=== PATIENT | female | born 1990 | race African-American/Black ===

== ENCOUNTER 2016-10-30 10:14 | Emergency (ER) | payer OTHER ==
[~2016-10-30] VITALS: Ht 157.5 cm; Wt 66.7 kg
[~2016-10-30 10:14] MED LIST: ACTICIN 5% CREA60 G1 TOP; BIRTH CONTROL PILL PO; DIFLUCAN150 MG PO; MACROBID 100 M100 M1 PO; NORCO 5-325 TA1 EACH PO; PENICILLIN VK500 MG PO; PERMETHRIN60 GM TOP; PREDNISONE50 MG PO; PYRIDIUM200 MG PO; UNICOMPLEX M TA1 TA1 PO; VISTARIL 25 MG25 M1 PO
[2016-10-30 10:16] VITALS: BP 122/86
[2016-10-30] MEDS ORDERED: IBUPROFEN 800800 MG PO (10:36)
== END 2016-10-30 10:46 | disposition home or self-care (01) ==
LOC: ER 10:14
DX: S86.811A Strain of other muscle(s) and tendon(s) at lower leg level, right leg, initial encounter (principal); Z88.6 Allergy status to analgesic agent; F10.99 Alcohol use, unspecified with unspecified alcohol-induced disorder; V43.52XA Car driver injured in collision with other type car in traffic accident, initial encounter; Y93.89 Activity, other specified; Y92.89 Other specified places as the place of occurrence of the external cause; Y99.8 Other external cause status

== ENCOUNTER 2017-01-11 00:41 | Emergency (ER) | payer OTHER ==
[~2017-01-11] VITALS: Ht 157.5 cm; Wt 65.8 kg
[~2017-01-11 00:41] MED LIST changes: +IBUPROFEN 800800 MG PO
[2017-01-11 02:22] LABS: URINE BILIRUBIN NEGATIVE (Negative); URINE BLOOD NEGATIVE (Negative); URINE COLOR YELLOW; URINE GLUCOSE-RANDOM* NEGATIVE (Negative); URINE KETONES NEGATIVE (Negative); URINE LEUKOCYTES-REFLEX TRACE (Negative); URINE PROTEIN (DIPSTICK) NEGATIVE (Negative); URINE SPECIFIC GRAVITY 1.025 (1.003-1.035); URINE UROBILINOGEN 0.2 E.U./dl (0.2-1.0)
[2017-01-11 02:45] VITALS: BP 118/68
[2017-01-12 15:06] LABS: CHLAMYDIA TRACHOMATIS-PCR Negative (Negative); NEISSERIA GONORRHEA-PCR Negative (Negative)
[2017-01-13 09:28] LABS: HSV PCR SOURCE LABIA
== END 2017-01-11 02:46 | disposition home or self-care (01) ==
LOC: ER 00:41
PROVIDERS: Emergency Medicine
DX: N76.0 Acute vaginitis (principal); Z88.6 Allergy status to analgesic agent; Z88.1 Allergy status to other antibiotic agents

== ENCOUNTER 2018-01-16 10:29 | Emergency (ER) | payer OTHER ==
[~2018-01-16] VITALS: Ht 157.5 cm; Wt 69.4 kg
[2018-01-16 11:09] LABS: ABSOLUTE NEUTROPHILS 8.2 thou/uL (1.4-8.2); BASOPHILS 0.1 % (0.0-2.0); EOSINOPHILS 1.3 % (0.0-3.0); HEMATOCRIT 35.7 % (37.0-47.0); HEMOGLOBIN 12.3 gm/dL (12.0-15.0); LYMPHOCYTES 7.8 % (24.0-44.0); MCH 27.6 pg (26.0-34.0); MCHC 34.6 g/dL (28.0-37.0); MCV 79.9 fL (80.0-100.0); MONOCYTES 5.7 % (1.0-8.0); PLATELET COUNT 152 thou/uL (150-400); POLYS 85.1 % (36.0-66.0); RBC 4.47 mil/uL (4.20-5.00); RDW 16.4 % (10.5-14.5); WBC 9.7 thou/uL (4.0-11.0)
[2018-01-16 11:35] LABS: CALCIUM 8.6 mg/dL (8.5-10.1); CREATININE 0.8 mg/dL (0.6-1.0); POTASSIUM 3.4 mmol/L (3.5-5.1)
[2018-01-16 12:08] LABS: URINE BILIRUBIN NEGATIVE (Negative); URINE BLOOD 3+ (Negative); URINE CLARITY CLEAR; URINE GLUCOSE-RANDOM* NEGATIVE (Negative); URINE KETONES NEGATIVE (Negative); URINE LEUKOCYTES-REFLEX NEGATIVE (Negative); URINE NITRITE-REFLEX NEGATIVE (Negative); URINE PROTEIN (DIPSTICK) NEGATIVE (Negative); URINE SPECIFIC GRAVITY <= 1.005 (1.005-1.035); URINE UROBILINOGEN 0.2 E.U./dl (0.2-1.0)
[2018-01-16 12:11] LABS: URINE COLOR PALE PINK
[2018-01-16 12:28] LABS: CASTS None Seen /LPF (None Seen); CRYSTALS None Seen /LPF (None Seen); SQUAMOUS 4-10 Moderate /LPF (0-3)
[2018-01-16 12:29] LABS: AMORPHOUS URATES Moderate /LPF (None Seen)
[2018-01-16 12:30] LABS: URINE WBC-REFLEX 0-5 Rare /HPF (0-5)
[2018-01-16 12:31] LABS: BACTERIA-REFLEX None Seen /HPF (None Seen); URINE RBC 3-10 Few /HPF (0-2)
[2018-01-16] MEDS ORDERED: IBUPROFEN 800800 M1 PO ×2 (13:26→13:28)
[2018-01-16 13:38] VITALS: BP 115/76
== END 2018-01-16 13:44 | disposition home or self-care (01) ==
LOC: ER 10:29
PROVIDERS: Emergency Medicine; Nurse Practitioner Family
DX: O03.4 Incomplete spontaneous abortion without complication (principal); Z3A.01 Less than 8 weeks gestation of pregnancy; Z88.6 Allergy status to analgesic agent

== ENCOUNTER 2019-03-23 18:42 | Emergency (ER) | payer OTHER ==
[~2019-03-23] VITALS: Ht 157.5 cm; Wt 64.9 kg
== END 2019-03-23 21:13 | disposition home or self-care (01) ==
LOC: ER 18:42
DX: S29.012A Strain of muscle and tendon of back wall of thorax, initial encounter (principal); G43.909 Migraine, unspecified, not intractable, without status migrainosus; Z88.6 Allergy status to analgesic agent; Z88.8 Allergy status to other drugs, medicaments and biological substances; V89.2XXA Person injured in unspecified motor-vehicle accident, traffic, initial encounter; Y93.I9 Activity, other involving external motion; Y92.410 Unspecified street and highway as the place of occurrence of the external cause; Y99.8 Other external cause status

== ENCOUNTER 2019-05-02 09:55 | Emergency (ER) | payer OTHER ==
[~2019-05-02] VITALS: Ht 160 cm; Wt 64.9 kg
[~2019-05-02 09:55] MED LIST changes: +CYCLOBENZAPRINE5 MG PO; +IBUPROFEN 800800 M1 PO; +MOBIC15 MG PO
[2019-05-02 11:01] LABS: URINE BILIRUBIN NEGATIVE (Negative); URINE BLOOD 1+ (Negative); URINE CLARITY CLEAR; URINE COLOR YELLOW; URINE GLUCOSE-RANDOM* NEGATIVE (Negative); URINE KETONES NEGATIVE (Negative); URINE NITRITE-REFLEX NEGATIVE (Negative); URINE PROTEIN (DIPSTICK) NEGATIVE (Negative); URINE SPECIFIC GRAVITY 1.015 (1.005-1.035); URINE UROBILINOGEN 0.2 E.U./dl (0.2-1.0)
[2019-05-02 11:02] LABS: URINE LEUKOCYTES-REFLEX 1+ (Negative)
[2019-05-02 11:11] LABS: CASTS None Seen /LPF (None Seen); MUCUS >6 Heavy strn/LPF (None Seen); SQUAMOUS >10 Many /LPF (0-3)
[2019-05-02 11:12] LABS: URINE RBC 0-2 Rare /HPF (0-2); URINE WBC-REFLEX 6-15 Few /HPF (0-5)
[2019-05-02 11:13] LABS: BACTERIA-REFLEX 1-9 Few /HPF (None Seen); CRYSTALS None Seen /LPF (None Seen)
[2019-05-02] MEDS ORDERED: KEFLEX500 M1 PO (11:22)
[2019-05-02 11:44] VITALS: BP 115/80
== END 2019-05-02 11:47 | disposition home or self-care (01) ==
LOC: ER 09:55
PROVIDERS: Nurse Practitioner Family
DX: Z20.2 Contact with and (suspected) exposure to infections with a predominantly sexual mode of transmission (principal); Z88.6 Allergy status to analgesic agent; Z88.8 Allergy status to other drugs, medicaments and biological substances

== ENCOUNTER 2020-04-10 07:00 | Emergency (ER) | payer OTHER ==
[~2020-04-10] VITALS: Ht 157.5 cm; Wt 69.0 kg
[~2020-04-10 07:00] MED LIST changes: +KEFLEX500 M1 PO
[2020-04-10 07:38] LABS: URINE BILIRUBIN NEGATIVE (Negative); URINE BLOOD 3+ (Negative); URINE CLARITY CLEAR; URINE COLOR YELLOW; URINE GLUCOSE-RANDOM* NEGATIVE (Negative); URINE KETONES NEGATIVE (Negative); URINE NITRITE-REFLEX NEGATIVE (Negative); URINE PROTEIN (DIPSTICK) TRACE (Negative); URINE SPECIFIC GRAVITY 1.025 (1.005-1.035); URINE UROBILINOGEN 0.2 E.U./dl (0.2-1.0)
[2020-04-10 07:42] LABS: URINE LEUKOCYTES-REFLEX 1+ (Negative)
[2020-04-10 07:44] LABS: ABSOLUTE NEUTROPHILS 4.1 thou/uL (1.4-8.2); BASOPHILS 0.8 % (0.0-2.0); EOSINOPHILS 2.8 % (0.0-3.0); HEMATOCRIT 38.3 % (37.0-47.0); HEMOGLOBIN 13.5 gm/dL (12.0-15.0); LYMPHOCYTES 32.5 % (24.0-44.0); MCHC 35.3 g/dL (28.0-37.0); MCV 82.3 fL (80.0-100.0); MONOCYTES 5.6 % (1.0-8.0); PLATELET COUNT 214 thou/uL (150-400); POLYS 58.3 % (36.0-66.0); RBC 4.66 mil/uL (4.20-5.00); RDW 15.1 % (10.5-14.5); WBC 7.1 thou/uL (4.0-11.0)
[2020-04-10 07:52] LABS: ANION GAP 7 mmol/L (7-16); BUN 16 mg/dL (7-18); CALCIUM 8.5 mg/dL (8.5-10.1); CHLORIDE 100 mmol/L (98-107); CO2 27 mmol/L (21-32); GLUCOSE 88 mg/dL (74-106); POTASSIUM 3.7 mmol/L (3.5-5.1); SODIUM 134 mmol/L (136-145)
[2020-04-10 07:57] LABS: ALBUMIN 3.8 g/dL (3.4-5.0); DIRECT BILIRUBIN < 0.1 mg/dL (<0.1-0.2); LIPASE 145 U/L (73-393); SGOT 170 U/L (15-37); SGPT 62 U/L (30-65); TOTAL BILIRUBIN 0.8 mg/dL (0.2-1.0); TOTAL PROTEIN 7.5 g/dL (6.4-8.2)
[2020-04-10 08:28] LABS: CASTS None Seen /LPF (None Seen); CRYSTALS None Seen /LPF (None Seen); SQUAMOUS >10 Many /LPF (0-3); URINE WBC-REFLEX 6-15 Few /HPF (0-5)
[2020-04-10 08:30] LABS: URINE RBC 3-10 Few /HPF (0-2)
[2020-04-10] MEDS ORDERED: MOBIC15 MG PO (08:37)
[2020-04-10 08:46] VITALS: BP 113/69
== END 2020-04-10 08:46 | disposition home or self-care (01) ==
LOC: ER 07:00
PROVIDERS: Emergency Medicine
DX: S39.012A Strain of muscle, fascia and tendon of lower back, initial encounter (principal); Z79.2 Long term (current) use of antibiotics; Z88.6 Allergy status to analgesic agent; Z88.8 Allergy status to other drugs, medicaments and biological substances; X50.1XXA Overexertion from prolonged static or awkward postures, initial encounter; Y93.89 Activity, other specified; Y92.89 Other specified places as the place of occurrence of the external cause; Y99.8 Other external cause status

== ENCOUNTER 2021-02-05 11:45 | Emergency (ER) | payer OTHER ==
[~2021-02-05] VITALS: Ht 157.5 cm; Wt 68.0 kg
[2021-02-05 12:17] LABS: URINE BILIRUBIN NEGATIVE (Negative); URINE BLOOD 2+ (Negative); URINE CLARITY CLEAR; URINE COLOR YELLOW; URINE GLUCOSE-RANDOM* NEGATIVE (Negative); URINE KETONES NEGATIVE (Negative); URINE NITRITE-REFLEX NEGATIVE (Negative); URINE PROTEIN (DIPSTICK) NEGATIVE (Negative); URINE UROBILINOGEN 0.2 E.U./dl (0.2-1.0)
[2021-02-05 12:19] LABS: URINE LEUKOCYTES-REFLEX 1+ (Negative)
[2021-02-05 12:31] LABS: SQUAMOUS 4-10 Moderate /LPF (0-3)
[2021-02-05 12:32] LABS: URINE RBC 3-10 Few /HPF (0-2); URINE WBC-REFLEX 0-5 Rare /HPF (0-5)
[2021-02-05 12:33] LABS: YEAST-REFLEX Present (None Seen)
[2021-02-05 12:34] LABS: CASTS None Seen /LPF (None Seen); CRYSTALS None Seen /LPF (None Seen); MUCUS 0-3 Light strn/LPF (None Seen)
[2021-02-05] MEDS ORDERED: CEFUROXIME500 MG PO (14:06)
[2021-02-05 14:37] VITALS: BP 131/80
== END 2021-02-05 14:39 | disposition home or self-care (01) ==
LOC: ER 11:45
PROVIDERS: Nurse Practitioner
DX: J18.9 Pneumonia, unspecified organism (principal); Z20.822 Contact with and (suspected) exposure to COVID-19; N39.0 Urinary tract infection, site not specified; Z88.6 Allergy status to analgesic agent; Z79.899 Other long term (current) drug therapy

== ENCOUNTER 2021-11-10 18:19 | Emergency (ER) | payer OTHER ==
[~2021-11-10] VITALS: Ht 157.5 cm; Wt 72.6 kg
[~2021-11-10 18:19] MED LIST changes: +CEFUROXIME500 MG PO
[2021-11-10 20:17] LABS: CALCIUM 9.4 mg/dL (8.5-10.1); CREATININE 0.9 mg/dL (0.6-1.0)
[2021-11-10 20:24] LABS: BASOPHILS 0.7 % (0.0-2.0); LYMPHOCYTES 40.2 % (24.0-44.0); MCHC 35.3 g/dL (28.0-37.0); MCV 80.6 fL (80.0-100.0)
[2021-11-10 20:25] LABS: ABSOLUTE NEUTROPHILS 4.9 thou/uL (1.4-8.2); EOSINOPHILS 3.1 % (0.0-3.0); HEMATOCRIT 36.9 % (37.0-47.0); MCH 28.5 pg (26.0-34.0); MONOCYTES 5.2 % (1.0-8.0); PLATELET COUNT 241 thou/uL (150-400); POLYS 50.8 % (36.0-66.0); RBC 4.58 mil/uL (4.20-5.00); RDW 15.2 % (10.5-14.5); WBC 9.6 thou/uL (4.0-11.0)
[2021-11-10 21:03] VITALS: BP 144/69
--- NOTE | 2021-11-11 07:46 | EKG ---
[place] [address] [facility] [place] [address] ELECTROCARDIOGRAM REPORT Name: GREER FLORES Room #: DEP [facility] [id number] Admission: 11/10/21 Attend Phys: Discharge: 11/10/21 Date of : 89 Report #: [id number] [facility] ED Test Date: 2021-11-10 Test Time: 18:27:38 Pat Name: GREER FLORES Department: Room: Gender: F [employer]: CURLY : 1990 Requested By: Darrel Pate Order Number: [id number] MD: Thony Pool Measurements Intervals [place] Rate: 85 P: 64 SC: 129 QRS: 3 QRSD: 95 T: 30 QT: 359 QTc: 427 Interpretive Statements Sinus rhythm RSR' in V1 or V2, probably normal variant No previous ECG available for comparison Electronically Signed On 11-11-2021 7:46:27 [employer] by Thony Pool [email or web address] <ELECTRONICALLY SIGNED> By: Thony Pool MD, [facility] 11/11/21 0746 1827 1827 Thony Pool MD, FACC /EPI
== END 2021-11-10 21:10 | disposition home or self-care (01) ==
LOC: ER 18:19
PROVIDERS: Student in an Organized Health Care Education/Training Program
DX: R07.89 Other chest pain (principal); Z20.822 Contact with and (suspected) exposure to COVID-19; Z88.8 Allergy status to other drugs, medicaments and biological substances; Z88.6 Allergy status to analgesic agent